=== PATIENT | male | born 1960 | race Caucasian/White ===

== ENCOUNTER → 2016-12-26 | Outpatient (CLI) | payer BC ==
[~2016-12-26] MED LIST: ASPIRIN 81M81 MG/TA2 PO; CARDENE 20MG CA20 M1 PO; CELEXA40 MG PO; COZAAR 50MG50 MG/TAB PO; FARXIGA10 PO; GLUCOPHAGE500 MG/TAB PO; LEVEMIR FLEX100 U/ML SQ; NORCO 325 MG-51 TAB PO; PLAVIX 75MG TAB75 MG PO; SYNTHROID0.1 MG/TAB PO; TRICOR145 MG PO; VICTOZA6 MG/ML SQ; VOLTAREN GEL 1%1 TU TP; WELLBUTRIN XL150 MG PO; ZOCOR 20MG20 MG PO
[2016-12-26 17:59] LABS: PROTHROMBIN TIME 10.6 SECONDS (9.7-12.8)
== END ==
LOC: COL.LAB 17:33
PROVIDERS: Internal Medicine Interventional Cardiology
DX: Z01.89 Encounter for other specified special examinations (principal)

== ENCOUNTER → 2016-12-28 | Outpatient (CLI) | payer BC | LOC: COL.LAB 08:24 | DX: R53.83 Other fatigue (principal) ==

== ENCOUNTER 2017-03-09 13:26 | Day surgery (SDC) | payer BC ==
[2017-03-09] VITALS (11 sets, daily range): BP systolic 116–140; BP diastolic 70–87; PULSE 62–96
[~2017-03-09] VITALS: Ht 175.3 cm; Wt 112.7 kg
[2017-03-09 12:56] LABS: HEMATOCRIT 42.8 % (42.0-52.0); HEMOGLOBIN 14.5 g/dl (13.5-18.0); MEAN CELL VOLUME 85 fl (80.0-100.0); MEAN CORPUSCULAR HEMOGLOBIN 29 pg (27.0-31.0); MEAN CORPUSCULAR HGB CONC 34 g/dl (33.0-37.0); MEAN PLATELET VOLUME 9.9 fl (7.4-10.4); PLATELET COUNT 175 K/mm3 (130-400); RED BLOOD COUNT 5.04 M/mm3 (4.20-5.60); REDCELL DISTRIBUTION WIDTH-CV 12.9 % (11.5-14.5); WHITE BLOOD COUNT 7.2 K/mm3 (4.8-10.8)
[2017-03-09 13:12] LABS: CALCIUM 9.2 mg/dL (8.4-10.2); CREATININE, serum 0.68 mg/dL (0.66-1.25); POTASSIUM 3.8 mmol/L (3.4-5.0)
[2017-03-09 13:14] LABS: INR 1.1 (0.8-3.0); PROTHROMBIN TIME 12.1 SECONDS (9.7-12.8)
[~2017-03-09 13:26] MED LIST changes: -ASPIRIN 81M81 MG/TA2 PO; -CARDENE 20MG CA20 M1 PO; -CELEXA40 MG PO; -COZAAR 50MG50 MG/TAB PO; -FARXIGA10 PO; -GLUCOPHAGE500 MG/TAB PO; -LEVEMIR FLEX100 U/ML SQ; -PLAVIX 75MG TAB75 MG PO; -SYNTHROID0.1 MG/TAB PO; -TRICOR145 MG PO; -VICTOZA6 MG/ML SQ; -VOLTAREN GEL 1%1 TU TP; -WELLBUTRIN XL150 MG PO; -ZOCOR 20MG20 MG PO
[2017-03-09] MEDS ORDERED: SYNTHROID0.1 MG/TAB PO (14:42)
[2017-03-09] MEDS ORDERED: WELLBUTRIN XL150 MG PO (14:42)
[2017-03-09] MEDS ORDERED: GLUCOPHAGE500 MG/TAB PO (14:43)
[2017-03-09] MEDS ORDERED: ASPIRIN 81M81 MG/TA2 PO (14:46)
[2017-03-09] MEDS ORDERED: TRICOR145 MG PO (14:52)
[2017-03-09] MEDS ORDERED: COZAAR 50MG50 MG/TAB PO (14:53)
[2017-03-09] MEDS ORDERED: CELEXA40 MG PO (14:53)
[2017-03-09] MEDS ORDERED: LEVEMIR FLEX100 U/ML SQ (14:55)
[2017-03-09] MEDS ORDERED: VICTOZA6 MG/ML SQ (14:55)
[2017-03-09] MEDS ORDERED: ZOCOR 20MG20 MG PO (14:56)
[2017-03-09] MEDS ORDERED: FARXIGA10 PO (14:56)
[2017-03-09] MEDS ORDERED: VOLTAREN GEL 1%1 TU TP (14:57)
[2017-03-09] MEDS ORDERED: PLAVIX 75MG TAB75 MG PO (14:57)
[2017-03-09] MEDS ORDERED: CARDENE 20MG CA20 M1 PO (18:05)
== END 2017-03-09 19:35 | disposition home or self-care (01) ==
LOC: COL.CAR 13:26
PROVIDERS: Internal Medicine Interventional Cardiology
DX: R07.9 Chest pain, unspecified (principal); I10 Essential (primary) hypertension; M19.90 Unspecified osteoarthritis, unspecified site; E78.5 Hyperlipidemia, unspecified; E03.9 Hypothyroidism, unspecified; E66.01 Morbid (severe) obesity due to excess calories; Z68.36 Body mass index [BMI] 36.0-36.9, adult
CPT/HCPCS: C1760; J2250; J3010; Q9967